=== PATIENT | female | born 1945 | race Caucasian/White ===

== ENCOUNTER → 2019-11-11 08:39 | Outpatient (CLI) | payer MEDICARE, OTHER | END | disposition home or self-care (01) | LOC: D.CT 08:39 | PROVIDERS: ATTEND Internal Medicine Cardiovascular Disease | DX: I70.213 Atherosclerosis of native arteries of extremities with intermittent claudication, bilateral legs (principal) ==

== ENCOUNTER 2019-11-25 12:09 | Day surgery (SDC) | payer MEDICARE, OTHER ==
[~2019-11-25] VITALS: Ht 157.5 cm; Wt 74.5 kg
--- NOTE | ~2019-11-25 | HEMODYNAMI ---
PATIENT:TOM ROBLES MEDICAL RECORD: [id number] : 41 LOCATION:[facility] ADMISSION DATE: 11/25/19 Generatedon:11/25/201915:05 Patient name: TOM ROBLES Patient #: [id number] SSN: : 1945 Date of study: 11/25/2019 Page: Of Hemodynamic Procedure Report Patient Data Patient Demographics Procedure consent was obtained First Name: TOM Gender: Female Last Name: MARGARET : 1945 [facility] Initial: D Age: 74 year(s) Patient #: [id number] Race: Additional ID: [id number] Contact details Address: [address] [place] [address] State: [place] City: [place] Zip code: [address] Past Medical History Allergies: No known allergies Admission Admission Data Admission Date: 11/25/2019 Admission Time: 12:09 Arrival Date: 11/25/2019 Arrival Time: 0:00 Admit Source: Other Procedure Procedure Types Cath Procedure Diagnostic Procedure Sedation Charges Moderate Sedation up to 15 minutes Peripheral Cath Diagnostic Procedure Almond Pan Finisher Peripheral Procedures AFRO (Diagnostic) Procedure Description Procedure Date Procedure Date: 11/25/2019 Procedure Start Time: 14:44 Procedure End Time: 15:03 Procedure Staff Name Function Marquez Eduardo MD Performing Physician Radha Rick RT Monitor Tangela Rosa RT Scrub Khris Licea RN Nurse Procedure Data Cath Procedure Fluoroscopy Diagnostic fluoroscopy Total fluoroscopy Time: 2.8 time: 2.8 min min Diagnostic fluoroscopy Total fluoroscopy dose: 223 dose: 223 mGy mGy Contrast Material Contrast Material Type Amount (ml) Isovue 300 72 Entry Location Entry Primary Successful Side Size Upsize Upsize Entry Closure Gordon ccessful Closure Location (Fr) 1 (Fr) 2 (Fr) Remarks Device Remarks Femoral Right 5 Fr Manual vein Compression Femoral Right 5 Fr Exoseal artery Estimated blood loss: 5 ml Diagnostic catheters Device Type Used For End Catheter Placement DIAGNOSTIC UF 5Fr Multi-vessel catheter ([id number]) Angiography DIAGNOSTIC IM 5Fr Multi-vessel catheter ([id number]) Angiography Procedure Complications No complications Procedure Medications Medication Administration Route Dosage Oxygen etCO2 Nasal cannula 2 l/min Lidocaine 2% added to field 20 Heparin Flush Bag added to field 2 bags (1000units/500ml NS) 0.9% NaCl I.V. 100 ml/hr Versed I.V. 1 mg Fentanyl I.V. 50 mcg Versed I.V. 1 mg Fentanyl I.V. 50 mcg Hemodynamics Rest Heart Rate: 62 (bpm) Snapshots Pre Cath Intra NCS Post Cath Vital Signs Time Heart Resp SPO2 etCO2 NIBP (mmHg) Rhythm Pain Sedation Rate (ipm) (%) (mmHg) Status Level (bpm) 14:24:35 69 25 98 0 Time NSR 0 (11) 10(A) Exceeded , No pain 14:28:51 70 13 98 0 199/92(153) NSR 0 (11) 10(A) , No pain 14:33:20 61 12 95 11.9 180/77(140) NSR 0 (11) 10(A) , No pain 14:37:44 59 12 96 23.9 158/80(129) NSR 0 (11) 10(A) , No pain 14:41:56 58 10 95 43.4 134/71(117) NSR 0 (11) 9(A) , No pain 14:46:14 59 15 96 41.9 135/74(108) NSR 0 (11) 9(A) , No pain 14:50:30 60 13 95 43.4 136/76(93) NSR 0 (11) 9(A) , No pain 14:54:48 63 12 96 43.4 132/74(109) NSR 0 (11) 9(A) , No pain 14:59:04 63 14 96 42.7 141/74(109) NSR 0 (11) 10(A) , No pain 15:03:24 68 17 97 32.2 148/74(122) NSR 0 (11) 10(A) , No pain Medications Time Medication Route Dose Verified Delivered Reason Notes Eff ectiveness by by 14:21:34 Oxygen etCO2 2 Marquez Buffie used for Nasal l/min Jayce Licea procurement manager cannula 14:21:40 Lidocaine 2% added 20ml Marquez Marquez for local to vial Jayce Eduardo MD anesthetic field 14:21:46 Heparin Flush added 2 Marquez Marquez used for Bag to bags Jayce Eduardo MD procedure (1000units/500ml field NS) 14:21:55 0.9% NaCl I.V. 100 Marquez Buffie Per ml/hr Jayce Licea RN physician 14:35:35 Versed I.V. 1 mg Marquez Buffie for Jayce Licea RN sedation 14:35:42 Fentanyl I.V. 50 Marquez Buffie for mcg Jayce Licea RN sedation 14:43:05 Versed I.V. 1 mg Marquez Buffie for Jayce Licea RN sedation 14:43:09 Fentanyl I.V. 50 Marquez Buffie for mcg Jayce Licea RN sedation Procedure Log Time Note 13:43:00 Informed consent obtained and on chart 13:43:09 Diagnostic Cath Status : Elective 13:43:24 Arrival Date: 11/25/2019 12:00:00 AM 13:43:25 Admit Source: Other 14:00:41 Procedure Status Peripheral. 14:00:43 Tangela Rosa RT(R) sent for patient. Start room use. 14:00:44 Time tracking: Regular hours (M-F 7:00 - 5:00) 14:00:47 Plan of Care:Hemodynamics will remain stable., Cardiac rhythm will remain stable., Comfort level will be maintained., Respiratory function will remain adequate., Patient/ family verbilizes understanding of procedure., Procedure tolerated without complication., Recovers from procedure without complications.. 14:13:15 Patient received from Pre/Post Procedure Room to [facility] 2 Alert and oriented. Tansferred to table in Supine position. 14:13:17 Warm blankets applied, and fitz hugger turned on for patient comfort. 14:13:17 Correct patient and procedure confirmed by team. 14:13:18 ECG and BP/O2 sat monitors applied to patient. 14:13:20 Pre-procedure instructions explained to patient. 14:13:21 Pre-op teaching completed and patient verbalized understanding. 14:13:22 Family unavailable. 14:13:24 Patient NPO since Midnight. 14:13:34 14:21:23 Vital chart was started 14:21:34 Oxygen 2 l/min etCO2 Nasal cannula was administered by Khris Licea RN; used for procedure; Verbal order read back and verified. 14:21:40 Lidocaine 2% 20ml vial added to field was administered by Marquez Eduardo MD; for local anesthetic; Verbal order read back and verified. 14:21:46 Heparin Flush Bag (1000units/500ml NS) 2 bags added to field was administered by Marquez Eduardo MD; used for procedure; Verbal order read back and verified. 14:21:55 0.9% NaCl 100 ml/hr I.V. was administered by Khris Licea RN; Per physician; Verbal order read back and verified. 14::44 Baseline sample Acquired. 14::48 Rhythm: sinus rhythm 14::49 Full Disclosure recording started 14::52 Is the patient allergic to Iodine/contrast media? No. 14::53 Was the patient premedicated? Yes 14:27:54 Is patient on blood thinner?Yes 14:28:00 ACC The patient was administered the following blood thiners within the last 24 hours: ACCPlavix 14:28:02 Patient diabetic? No. 14:28:04 Previous problem with sedation/anesthesia? No ? 14:28:06 Snore? No 14:28:07 Sleep apnea? No 14:28:08 Deviated septum? No 14:28:09 Opens mouth fully? Yes 14:28:10 Sticks out tongue? Yes 14:28:11 Airway obstruction? No ? 14:28:15 Dentures? Yes in tight 14:28:18 Pre procedure: right dorsailis pedis pulse 1+ Palpable, but thready & weak; easily obliterated 14:28:27 Pre procedure: left dorsailis pedis pulse 1+ Palpable, but thready & weak; easily obliterated 14:28:29 Patient pain scale 0/10 ?. 14:28:40 IV patent on arrival in left forearm with 0.9% NaCl at [facility]. 14::44 Lab results completed and on chart. 14::06 Bilateral groins area was prepped with chlora-prep and draped in sterile fashion 14:: Alarms reviewed by RJay N. 14:: Sharps counted by scrub and verified by R.N. 14:29:08 Physician arrived ::08 --------ALL STOP TIME OUT------ 14:: Final Timeout: patient, procedure, and site verified with staff and physician. All members of the team are in agreement. 14:29:10 Bilateral groins site verified by team. 14:29:13 Fire Safety Assessment: A--An alcohol-based skin anteseptic being used preoperatively., C--Open oxygen or nitrous oxide is being used., D--An ESU, laser, or fiber-optic light is being used. 14:29:17 Physical assessment completed. ASA score P 2 - A patient with mild systemic disease as per Marquez Eduardo MD. 14:31:10 3a) 45-59 Moderately reduced kidney function. 14:32:01 Maximum allowable contrast dose (3.7 X eGFR X 0.75)158 ml. 14:32:04 Sedation plan: IV Moderate Sedation Medication:Versed, Fentanyl 14:32:09 Use device set CATH PACK 14:32:10 ACIST Syringe (90889) opened to sterile field. 14:32:10 ACIST Hand Control (45819) opened to sterile field. 14:32:11 ACIST Manifold (35959) opened to sterile field. 14:32:11 Medline Cath Pack ([id number]) opened to sterile field. 14:32:11 Bag Decanter (2002S) opened to sterile field. 14:32:12 EMERALD Guide Wire (415-350) opened to sterile field. 14:32:18 SHEATH 5FR [place] (ZHL189) opened to sterile field. 14:35:35 Versed 1 mg I.V. was administered by Khris Licea RN; for sedation; Verbal order read back and verified. 14:35:42 Fentanyl 50 mcg I.V. was administered by Khris Licea RN; for sedation; Verbal order read back and verified. 14:43:05 Versed 1 mg I.V. was administered by Khris Licea RN; for sedation; Verbal order read back and verified. 14:43:09 Fentanyl 50 mcg I.V. was administered by Khris Licea RN; for sedation; Verbal order read back and verified. 14:44:29 Procedure started. 14:44:46 Local anesthetic to right femoral artery with Lidocaine 2% by Marquez Eduardo MD.INITIAL ACCESS ONLY 14:44:54 A 5 Fr sheath was inserted into the Right Femoral vein 14:47:17 SHEATH 5FR [place] (GMI312) opened to sterile field. 14:48:45 A 5 Fr sheath was inserted into the Right Femoral artery 14:50:38 A DIAGNOSTIC UF 5Fr catheter ([id number]) was advanced over the wire and used for Multi-vessel Angiography. 14:53:14 Abdominal angiogram w/ runoff was performed. 14:55:30 Catheter removed. 14:55:33 A DIAGNOSTIC IM 5Fr catheter ([id number]) was advanced over the wire and used for Multi-vessel Angiography. 14:58:21 Left leg runoff performed. 14:58:27 Injector settings: Ml/sec: 10, Volume: 20, 14:58:29 Catheter removed. 14:58:36 EXOSEAL 5Fr (EX500) opened to sterile field. 14:59:03 Sheath removed intact; hemostasis achieved with Exoseal to the Right Femoral artery. 14:59:05 Procedure ended.(Physican Out) 14:59:19 Sheath removed intact; hemostasis achieved with Manual Compression to the Right Femoral vein. 14:59:25 Fluoroscopy time 02.80 minutes. 14:59:31 Fluoroscopy dose: 223 mGy 14:59:31 Flurop Dose total: 223 14:59:36 Dose Area Product 20599 mGy/cm. 15:01:19 Contrast amount:Isovue 300 72ml. 15:01:21 Maximum allowable dose exceeded? No. 15:01:22 Sharps counted by scrub and verified by R.N. 15:01:55 Insertion/operative site no bleeding no hematoma. 15:02:07 Post-op/insertion site Right Femoral artery dressed using a 4 x 4 and Tegaderm. 15:02:09 Post Procedure Pulses reassessed and unchanged 15:02:11 Post procedure rhythm: unchanged. 15:02:25 Estimated blood loss: 5 ml 15:02:26 Post procedure instruction explained to patient.Patient verbalizes understanding. 15:02:27 Patient needs reinforcement of post procedure teaching. 15:03:06 Procedure type changed to Cath procedure, Diagnostic procedure, Sedation Charges, Moderate Sedation up to 15 minutes, Peripheral Cath Diagnostic Procedure, Almond Pan Finisher Peripheral Procedures, AFRO (Diagnostic) 15:03:07 Procedure and supply charges have been captured, reviewed, submitted and are correct. 15:03:12 Procedure Complication : No complications 15:03:14 Vital chart was stopped 15:03:20 AFRO Findings: PVD: will discuss options w/ pt 15:03:23 Operative report dictated upon procedure completion. 15:03:23 See physician's report for complete and final results. 15:03:25 Report given to Pre/Post Procedure Room. 15:03:27 Patient transfered to Pre/Post Procedure Room with Stretcher. 15:03:28 Procedure ended. 15:03:28 Full Disclosure recording stopped 15:03:33 End room use (Document Last) 15:04:43 End room use (Document Last) 15:05:10 End room use (Document Last) Device Usage Item Name Manufacture Quantity Catalog Hospital Part Current Minimal L ot# / Number Charge Number Stock Stock Serial# Code ACIST Acist 1 00798 048513 646698 971021 20 Syringe Medical (91472) Systems Inc ACIST Hand Acist 1 19959 623294 656411 776039 5 Control Medical (17061) Systems Inc ACIST Acist 1 18975 138980 159244 350842 5 Manifold Medical (93178) Systems Inc Medline Medline 1 [id number] 264245 73031 528452 5 Cath Pack ([id number]) Bag Microtek 1 2001S 241076 65143 116573 5 Decanter Medical Inc. () EMERALD Cardinal 1 502-455 296601 388872 809548 5 Guide Wire Health (502-455) SHEATH 5FR Terumo 2 BMI216 597023 387574 282892 5 [place] (XQL971) DIAGNOSTIC Cardinal 1 [id number] 851006 729516 772725 10 UF 5Fr Health catheter (488259F3) DIAGNOSTIC Cardinal 1 [id number] 101897 379521 328284 5 IM 5Fr Health catheter (327550F) EXOSEAL 5Fr Cardinal 1 EX500 781272 853374 339642 10 (EX500) Health Signature Audit [place] Stage Time Signature Unsigned Intra-Procedure 11/25/2019 Radha Rcik 3:04:43 PM RT(R) Intra-Procedure 11/25/2019 Khris Licea RN 3:05:10 PM Intra-Procedure 11/25/2019 Marquez Eduardo MD 3:05:36 PM Signatures Performing Physician : Signature : Marquez Eduardo MD Date : Time : Monitor : Radha Prabhjot RT Signature : Date : Time : Nurse : Buffie Licea RN Signature : Date : Time : [address] [place] [address]
[2019-11-25] MEDS ORDERED: CYMBALTA60 MG PO (13:25)
[2019-11-25] MEDS ORDERED: TENORMIN25 MG PO (13:25)
[2019-11-25] MEDS ORDERED: AVAPRO150 MG PO (13:25)
[2019-11-25] MEDS ORDERED: CLARITIN 10 MG10 MG PO (13:26)
[2019-11-25] MEDS ORDERED: PROTONIX40 MG PO (13:26)
[2019-11-25] MEDS ORDERED: KLOR-CON 1010 MEQ PO (13:27)
[2019-11-25] MEDS ORDERED: PLAVIX75 MG PO (13:27)
[2019-11-25] MEDS ORDERED: ATARAX 25 MG TA25 MG PO (13:28)
[2019-11-25] MEDS ORDERED: NEURONTIN 300300 MG PO (13:28)
[2019-11-25] MEDS ORDERED: CATAPRES0.1 MG PO (13:29)
[2019-11-25 13:40] VITALS: BP 175/83; Ht 157.5 cm; Wt 74.5 kg
[2019-11-25 13:52] LABS: BASOPHILS 0.3 % (0-2); EOSINOPHILS 8.9 % (0-7); HEMOGLOBIN 11.9 g/dL (12-16); IMMATURE GRANULOCYTES 0.3 % (0-5); LYMPHOCYTES 34.8 % (15-50); MCH 30.1 pg (26.0-34.0); MCHC 33.1 g/dL (31.0-37.0); MCV 90.9 fL (80.0-100.0); MEAN PLATELET VOLUME 10.3 fL (7.4-10.4); MONOCYTES 9.5 % (2-11); NEUTROPHILS 46.2 % (40-80); PLATELET COUNT 258 10x3/uL (130-400); RBC 3.96 10x6/uL (4.00-5.40); RDW 12.8 % (11.5-14.5); WBC 7.6 10x3/uL (4.8-10.8)
[2019-11-25 13:58] LABS: ANION GAP 9.3 mmol/L (8-16); CARBON DIOXIDE 27.4 mmol/L (21.0-32.0); POTASSIUM - SERUM 3.7 mmol/L (3.5-5.1)
--- NOTE | 2019-11-25 15:20 | NUR ---
PT REC'D TO ROOM 3 VIA STRETCHER FROM AUTOMATIC SILK SCREEN PRINTER. MONITORS ESTAB. SEE RADIOLOGY PHYSICIAN ASSISTANT, ALARMS ON AND C/L IN REACH.
--- NOTE | 2019-11-25 15:35 | NUR ---
R GROIN SITE C/D/I, NO S/S BLEEDING OR HEMATOMA. PULSES PALP. VSS. PT RESTING QUIETLY. ALARMS ON AND C/L IN REACH.
--- NOTE | 2019-11-25 16:05 | NUR ---
R GROIN SITE C/D/I, NO S/S BLEEDING OR HEMATOMA. PULSES PALP. BEGIN ELEVATING HOB SLOWLY. VSS. C/L IN REACH.
--- NOTE | 2019-11-25 16:19 | NUR ---
DR. BAUER IN TO TALK WITH PT. VSS. R GROIN SITE C/D/I. PT GIVEN SPRITE PER REQUEST. C/L IN REACH.
--- NOTE | 2019-11-25 16:45 | NUR ---
R GROIN SITE SOFT, C/D/I, NO S/S BLEEDING OR HEMATOMA. PIV D/C'D INTACT, DSG APPLIED. PT ASSISTED UP TO GET DRESSED AND GO TO BR.
--- NOTE | 2019-11-25 16:55 | NUR ---
ALL DISCHARGE INSTRUCTIONS REVIEWED WITH PT - VERBALIZES UNDERSTANDING.
--- NOTE | 2019-11-25 17:10 | NUR ---
PT D/C'D VIA WC TO PRIVATE VEHICLE WITH ALL PAPER WORK AND BELONGINGS.
== END 2019-11-25 17:10 | disposition home or self-care (01) ==
LOC: D.CATH 12:09
PROVIDERS: ATTEND Internal Medicine Cardiovascular Disease
DX: I70.213 Atherosclerosis of native arteries of extremities with intermittent claudication, bilateral legs (principal); Z95.0 Presence of cardiac pacemaker; R00.1 Bradycardia, unspecified; K21.9 Gastro-esophageal reflux disease without esophagitis

== ENCOUNTER 2019-12-10 07:34 | Day surgery (SDC) | payer MEDICARE, OTHER ==
[~2019-12-10] VITALS: Ht 157.5 cm; Wt 72.3 kg
--- NOTE | ~2019-12-10 | HEMODYNAMI ---
PATIENT:TOM ROBLES MEDICAL RECORD: [id number] : 41 LOCATION:[facility] ADMISSION DATE: 12/10/19 Generatedon:12/10/201911:03 Patient name: TOM ROBLES Patient #: [id number] SSN: : 1945 Date of study: 12/10/2019 Page: Of Hemodynamic Procedure Report Patient Data Patient Demographics Procedure consent was obtained First Name: TOM Gender: Female Last Name: MARGARET : 1945 Middle Initial: D Age: 74 year(s) Patient #: [id number] Race: Additional ID: [id number] Contact details [address]: [address] [place] [address] State: [place] City: [place] Zip code: [address] Past Medical History Allergies Allergen Reaction Date Comments Reported NSAIDs 12/10/2019 Admission Admission Data Admission Date: 12/10/2019 Admission Time: 7:34 Arrival Date: 12/10/2019 Arrival Time: 0:00 Height (in.): 61.81 BSA: 1.73 (m2) Height (cm.): 157 BMI: 29.21 (kg/m2) Weight (lbs.): 158.73 Weight (kg.): 72 Lab Results Lab Result Date: 12/10/2019 Lab Result Time: 0:00 Biochemistry Name Units Result Min Max BUN mg/dl 20 --(----)*- 7 18 Creatinine mg/dl 1 --(--*-)-- 0.6 1.3 eGFR ml/min 57 *-(----)-- 90 120 NONAFRICAN CBC Name Units Result Min Max Hematocrit % 37.5 *-(----)-- 42 54 Hemoglobin g/dl 12.4 *-(----)-- 13.5 17.5 Procedure Procedure Types Cath Procedure Diagnostic Procedure Sedation Charges Moderate Sedation up to 45 minutes PCI Procedure Hemochron ACT Test Peripheral vascular Intervention Atherectomy Atherectomy Fem/Pop w/Plasty Procedure Description Procedure Date Procedure Date: 12/10/2019 Procedure Start Time: 10:10 Procedure End Time: 11:01 Procedure Staff Name Function Marquez Eduardo MD Performing Physician Louisa Carpenter RT Monitor Radha Rick RT Scrub Khris Licea RN Nurse Procedure Data Cath Procedure Fluoroscopy Diagnostic fluoroscopy Total fluoroscopy Time: time: 17.1 min 17.1 min Diagnostic fluoroscopy Total fluoroscopy dose: 301 dose: 301 mGy mGy Contrast Material Contrast Material Type Amount (ml) Isovue 300 34 Entry Location Entry Primary Successful Side Size Upsize Upsize Entry Closure Succes sful Closure Location (Fr) 1 (Fr) 2 (Fr) Remarks Device Remarks Femoral Left 6 Fr 6 Fr Exoseal artery Short Long Estimated blood loss: 10 ml Diagnostic catheters Device Type Used For End Catheter Placement DIAGNOSTIC IM 5Fr Procedure catheter ([id number]) Procedure Complications No complications Procedure Medications Medication Administration Route Dosage Oxygen etCO2 Nasal cannula 2 l/min Lidocaine 2% added to field 20 Heparin Flush Bag added to field 2 bags (1000units/500ml NS) 0.9% NaCl I.V. 100 ml/hr Versed I.V. 2 mg Fentanyl I.V. 100 mcg Heparin Bolus I.V. 6000 units Versed I.V. 0.5 mg Fentanyl I.V. 25 mcg Viperslide Mix(5mg added to field 1 bags Verapamil/5mg Nitro/20cc Viperslide/100cc Bag NS) Versed I.V. 0.5 mg Fentanyl I.V. 25 mcg Plavix P.O. 75 mg Hemodynamics Rest BSA: 1.73 (m2) HGB: 12.4 (g/dl) O2 Consumption: Estimated: 150.84 (ml/min) O2 Co nsumption indexed: Estimated:87.19 (ml/min/m) Heart Rate: 61 (bpm) Snapshots Pre Cath Intra NCS Post Cath Vital Signs Time Heart Resp SPO2 etCO2 NIBP (mmHg) Rhythm Pain Sedation Rate (ipm) (%) (mmHg) Status Level (bpm) 9:57:49 62 14 98 34.7 148/73(119) NSR 0 (11) 10(A) , No pain 10:02:07 65 28 98 30.9 129/70(106) NSR 0 (11) 10(A) , No pain 10:06:21 63 14 99 30.2 112/60(94) NSR 0 (11) 10(A) , No pain 10:10:29 62 12 99 20.3 111/61(90) NSR 0 (11) 10(A) , No pain 10:14:35 65 15 99 10.5 109/62(87) NSR 0 (11) 9(A) , No pain 10:18:41 68 12 100 14.3 108/61(92) NSR 0 (11) 9(A) , No pain 10:22:44 68 11 100 8.3 102/66(83) NSR 0 (11) 9(A) , No pain 10:26:50 70 10 100 14.3 102/54(70) NSR 0 (11) 9(A) , No pain 10:30:56 68 11 100 9 102/57(84) NSR 0 (11) 9(A) , No pain 10:35:04 68 12 98 19.6 93/50(70) NSR 0 (11) 9(A) , No pain 10:39:06 67 10 96 27.1 99/55(83) NSR 0 (11) 9(A) , No pain 10:43:11 68 10 94 21.1 96/52(76) NSR 0 (11) 9(A) , No pain 10:47:15 67 10 93 18.8 108/55(74) NSR 0 (11) 9(A) , No pain 10:51:23 65 15 96 18.1 99/56(73) NSR 0 (11) 9(A) , No pain 10:55:23 65 18 97 40.7 114/69(100) NSR 0 (11) 9(A) , No pain 10:59:28 62 14 99 36.2 120/71(89) NSR 0 (11) 10(A) , No pain Medications Time Medication Route Dose Verified Delivered Reason Notes Effectiveness by by 9:57:57 Oxygen etCO2 2 Marquez Buffie used for Nasal l/min Jayce Licea debrander cannula 9:58:04 Lidocaine 2% added 20ml Marquez Marquez for local to vial Jayce Eduardo MD anesthetic field 9:58:10 Heparin Flush added 2 Marquez Marquez used for Bag to bags Jayce Eduardo MD procedure (1000units/500ml field NS) 9:58:24 0.9% NaCl I.V. 100 Marquez Buffie Per physician ml/hr Jayce Licea RN 10:09:23 Versed I.V. 2 mg Marquez Buffie for sedation Jayce Licea RN 10:09:28 Fentanyl I.V. 100 Marquez Buffie for sedation mcg Jayce Licea RN 10:12:44 Versed I.V. 0.5 Marquez Buffie for sedation mg Jayce Licea RN 10:12:49 Fentanyl I.V. 25 Marquez Buffie for sedation mcg Jayce Licea RN 10:16:43 Heparin Bolus I.V. 6000 Marquez Buffie for verif ied units Jayce Licea RN anticoagulation with dr eduardo 10:24:07 Viperslide added 1 Marquez Marquez used for Mix(5mg to bags Jayce Eduardo MD procedure Verapamil/5mg field Nitro/20cc Viperslide/100cc Bag NS) 10:31:21 Versed I.V. 0.5 Marquez Buffie for sedation mg Jayce Licea RN 10:31:25 Fentanyl I.V. 25 Marquez Buffie for sedation mcg Jayce Licea RN 10:59:00 Plavix P.O. 75 mg Marquez Buffie for Jayce Licea RN antiplatelet therapy Procedure Log Time Note 9::28 Informed consent obtained and on chart 9:10:02 Procedure Status Peripheral. 9:10:04 Time tracking: Regular hours (M-F 7:00 - 5:00) 9:10:06 Plan of Care:Hemodynamics will remain stable., Cardiac rhythm will remain stable., Comfort level will be maintained., Respiratory function will remain adequate., Patient/ family verbilizes understanding of procedure., Procedure tolerated without complication., Recovers from procedure without complications.. 9:25:54 Patient Weight : 158.73 lbs 9:25:57 Patient Height : 61.81 inches 9:26:01 Arrival Date: 12/10/2019 12:00:00 AM 9::28 Lab Result : eGFR NONAFRICAN 57 ml/min 9::28 Lab Result : Hemoglobin 12.4 g/dl 9::28 Lab Result : BUN 20 mg/dl 9:: Lab Result : Creatinine 1 mg/dl 9:26:28 Lab Result : Hematocrit 37.5 % 9:26:48 Patient allergic to NSAIDs 9:42:46 Louisa Carpenter RT(R) sent for patient. Start room use. 9:56:32 Patient received from Pre/Post Procedure Room to CCL 2 Alert and oriented. Tansferred to table in Supine position. 9:56:34 Warm blankets applied, and fitz hugger turned on for patient comfort. 9:56:35 Correct patient and procedure confirmed by team. 9:56:36 ECG and BP/O2 sat monitors applied to patient. 9:56:37 Vital chart was started 9:56:38 Baseline sample Acquired. 9:56:45 Rhythm: sinus rhythm 9:56:47 Full Disclosure recording started 9:56:48 - 9:56:55 H&P Date Dictated: 12/10/2019 H&P Addendum completed by physician on day of procedure. (MUST COMPLETE FOR ALL OUTPATIENTS), New H&P dictated by physician.. 9:56:57 Pre-procedure instructions explained to patient. 9:56:58 Pre-op teaching completed and patient verbalized understanding. 9:57:03 Family unavailable. 9:57:05 Patient NPO since Midnight. 9:57:15 Is the patient allergic to Iodine/contrast media? No. 9:57:19 Was the patient premedicated? Yes 9:57:29 Is patient on blood thinner?Yes 9:57:34 ACC The patient was administered the following blood thiners within the last 24 hours: ACCPlavix 9:57:57 Oxygen 2 l/min etCO2 Nasal cannula was administered by Khris Licea RN; used for procedure; Verbal order read back and verified. 9:58:04 Lidocaine 2% 20ml vial added to field was administered by Marquez Eduardo MD ; for local anesthetic; Verbal order read back and verified. 9:58:10 Heparin Flush Bag (1000units/500ml NS) 2 bags added to field was administered by Marquez Eduardo MD; used for procedure; Verbal order read back and verified. 9:58:24 0.9% NaCl 100 ml/hr I.V. was administered by Khris Licea RN; Per physician; Verbal order read back and verified. 9:59:03 Patient diabetic? No. 9:59:06 ----Pre-sedation anethsthesia assessment.---- 9:59:10 Previous problem with sedation/anesthesia? No ? 9:59:14 Snore? Yes 9:59:16 Sleep apnea? No 9:59:19 Deviated septum? Unknown 9:59:22 Opens mouth fully? Yes 9:59:24 Sticks out tongue? Yes 9:59:28 Airway obstruction? No ? 9:59:40 Dentures? Yes in tight 9:59:47 Pre procedure: right dorsailis pedis pulse 1+ Palpable, but thready & weak; easily obliterated 10:00:11 IV patent on arrival in right forearm with 0.9% NaCl at O. 10:00:25 Lab results completed and on chart. 10:00:39 Bilateral groins area was prepped with chlora-prep and draped in steril e fashion 10:00:41 Alarms reviewed by R. N. 10:00:42 Sharps counted by scrub and verified by R.N. 10:00:53 Use device set Femoral Dx 10:00:55 ACIST Syringe (72420) opened to sterile field. 10:00:56 Bag Decanter (2002S) opened to sterile field. 10:00:56 Medline Cath Pack ([id number]) opened to sterile field. 10:00:59 ACIST Hand Control (62688) opened to sterile field. 10:00:59 ACIST Manifold (00587) opened to sterile field. 10:01:02 Tegaderm 4 x 4 (1626W) opened to sterile field. 10:01:05 EMERALD Guide Wire (502-102) opened to sterile field. 10:02:20 GLIDE WIRE ANGLE 260cm (JM2242) opened to sterile field. 10:02:21 TUBING High Pressure Extension Tubing (Jayce) (GH1004I) opened to sterile field. 10:02:23 SHEATH 6FR [place] (PQF763) opened to sterile field. 10:08:08 --------ALL STOP TIME OUT------ :08:09 Final Timeout: patient, procedure, and site verified with staff and physician. All members of the team are in agreement. 10:08:11 Bilateral groins site verified by team. 10:08:22 Fire Safety Assessment: A--An alcohol-based skin anteseptic being used preoperatively., C--Open oxygen or nitrous oxide is being used., D--An ESU, laser, or fiber-optic light is being used. 10:08:24 Physical assessment completed. ASA score P 2 - A patient with mild systemic disease as per Marquez Eduardo MD. 10:08:35 3a) 45-59 Moderately reduced kidney function. 10:08:36 Maximum allowable contrast dose (3.7 X eGFR X 0.75)158 ml. 10:08:39 Sedation plan: IV Moderate Sedation Medication:Versed, Fentanyl 10:09:23 Versed 2 mg I.V. was administered by Khris Licea RN; for sedation; Verbal order read back and verified. 10:09:28 Fentanyl 100 mcg I.V. was administered by Khris Licea RN; for sedation; Verbal order read back and verified. 10:09:52 Procedure started. 10:10:36 Local anesthetic to left femerol artery with Lidocaine 2% by Marquez Eduardo MD.INITIAL ACCESS ONLY 10:11:27 A 6 Fr Short sheath was inserted into the Left Femoral artery 10:12:44 Versed 0.5 mg I.V. was administered by Khris Licea RN; for sedation; Verbal order read back and verified. 10:12:45 A DIAGNOSTIC IM 5Fr catheter ([id number]) was advanced over the wire and used for Procedure. 10:12:49 Fentanyl 25 mcg I.V. was administered by Khris Licea RN; for sedation; Verbal order read back and verified. 10:13:21 IM CATHTER AND GLIDEWIRE ADVANCED AROUND THE HORN 10:14:11 GLIDE WIRE EXCHANGED FOR J WIRE. IM CATHETER REMOVED OVER THE JWIRE 10:15:44 Cook RAABE 6FR. 90cm guide sheath opened to sterile field. 10:16:20 Sheath upsized to a 6 Fr Long. 10:16:43 Heparin Bolus 6000 units I.V. was administered by Khris Licea RN; for anticoagulation; verified with dr eduardo Verbal order read back and verified. 10:17:00 COOK SHEATH ADVANCED AROUND THE HORN 10:17:37 WIRE REMOVED 10:19:38 DIAMONDBACK VIPER .014 335 CM wire ([id number]) opened to sterile field. 10:20:42 VIPER WIRE ADVANCED 10:22:32 VIPER WIRE REMOVED 10:22:37 BMW 300cm Straight [place] 2 wire ([id number]) opened to sterile field. 10:22:55 BMW 300 ADVANCED 10:24:07 Viperslide Mix(5mg Verapamil/5mg Nitro/20cc Viperslide/100cc Bag NS) 1 bags added to field was administered by Marquez Eduardo MD; used for procedure; Verbal order read back and verified. 10:25:01 SABER BALLOON USED TO ADVANCED WIRE ACROSS LESION. 10:25:27 BMW REMOVED AND CHANGED FOR VIPER WIRE 10:27:10 The SABER 5.0 X 150 X 150 balloon ([id number]) was advanced and then removed because it was opened but not used 10:27:36 DIAMONDBACK Viperslide Lubricant (VPRSLD2) opened to sterile field. 10:28:54 DIAMONDBACK 360 1.50 SOLID Atherectomy catheter ([id number]) opened to sterile field. 10:29:01 CARLOT[place]ACK Viperwire Advance Coronary guidewire ([id number]) opened to sterile field. 10:31:21 Versed 0.5 mg I.V. was administered by Khris Licea RN; for sedation; Verbal order read back and verified. 10:31:25 Fentanyl 25 mcg I.V. was administered by Khris Lciea RN; for sedation; Verbal order read back and verified. 10:34:45 Diamondback atherectomy performed on Common Femoral. 10:42:57 Diamondback catheter removed. 10:46:59 Inflate balloon Inflation number: 1 A SABER 5.0 X 150 X 150 balloon ([id number]) was prepped and advanced across the Mid Common Femoral, Right , then inflated to 4 BEATA for 1:34 (min:sec) . 10:49:46 Inflation number: 2 The SABER 5.0 X 150 X 150 balloon ([id number]) was reinflated across the Mid Common Femoral, Right , to 4 BEATA for 2:06 (min:sec) . 10:50:50 Balloon removed over the wire. 10:52:15 Wire removed. 10:53:31 LONG SHEATH EXCHANGED FOR A SHORT SHEATH 10:54:01 EXOSEAL 6Fr (EX600) opened to sterile field. 10:55:05 Sheath removed intact; hemostasis achieved with Exoseal to the Left Femoral artery. 10:55:13 Procedure ended.(Physican Out) 10:55:27 Fluoroscopy time 17.10 minutes. 10:55:31 Flurop Dose total: 301 10:55:31 Fluoroscopy dose: 301 mGy 10:55:35 Dose Area Product 39229 mGy/cm. 10:55:59 Contrast amount:Isovue 300 34ml. 10:56:02 Maximum allowable dose exceeded? No. 10:56:03 Sharps counted by scrub and verified by R.N. 10:56:05 Post-op/insertion site Left Femoral artery dressed using a 4 x 4 and Tegaderm. 10:56:08 Post-procedure physical assessment completed. ASA score P 2 - A patient with mild systemic disease as per Marquez Eduardo MD. 10:56:34 Post procedure rhythm: sinus rhythm 10:56:36 Estimated blood loss: 10 ml 10:56:37 Post procedure instruction explained to patient.Patient verbalizes understanding. 10:56:38 Patient needs reinforcement of post procedure teaching. 10:57:20 Procedure type changed to Cath procedure, Diagnostic procedure, Sedatio n Charges, Moderate Sedation up to 45 minutes, PCI procedure, Hemochron ACT Test, Peripheral vascular Intervention, Atherectomy, Atherectomy Fem/Pop w/Plasty 10:59:00 Plavix 75 mg P.O. was administered by Khris Licea RN; for antiplatelet therapy; Verbal order read back and verified. 10:59:13 ACT drawn and resulted at out of range high seconds. (normal therapeuti c range 180-240 seconds). 10:59:39 Procedure and supply charges have been captured, reviewed, submitted an d are correct. 10:59:41 Procedure Complication : No complications 10:59:52 Operative report dictated upon procedure completion. 10:59:55 See physician's report for complete and final results. 10:59:57 Report given to Pre/Post Procedure Room. 11:00:00 Patient transfered to Pre/Post Procedure Room with Bed. 11:00:02 Vital chart was stopped 11:01:23 Procedure ended. 11:01:23 Full Disclosure recording stopped 11:01:29 End room use (Document Last) 11:02:26 End room use (Document Last) 11:02:50 End room use (Document Last) Intervention Summary Intervention Notes Time ActionType Lesion and Equipment Action# Pressure Duration Attributes Used 10:27:10 Discard SABER 5.0 X Balloon 150 X 150 balloon ([id number]) 10:46:59 Inflate Mid Common SABER 5.0 X 1 4 01:34 balloon Femoral, 150 X 150 Right balloon ([id number]) 10:49:46 Reinflate Mid Common SABER 5.0 X 2 4 02:06 balloon Femoral, 150 X 150 Right balloon ([id number]) Device Usage Item Name Manufacture Quantity Catalog Number Hospital Part Curr ent Minimal Lot# / Charge Number Stock Stock Serial# Code ACIST Syringe Acist Medical 1 28565 265103 378822 2341 04 20 (90516) Systems Inc Bag Decanter Microtek 1 2001S 573895 09103 9838 02 5 (2001S) Medical Inc. Medline Cath Medline 1 [id number] 017817 22184 9860 46 5 Pack ([id number]) ACIST Hand Acist Medical 1 69716 755759 161479 1888 35 5 Control (82176) Systems Inc ACIST Manifold Acist Medical 1 80477 248681 555838 3335 51 5 (50583) Systems Inc Tegaderm 4 x 4 3M 1 1626W 230271 562513 0414 71 5 (1626W) EMERALD Guide Cardinal 1 502-455 412527 217818 5480 17 5 Wire (502-455) Health GLIDE WIRE ANGLE Terumo 1 XU3767 792176 327250 8879 50 5 260cm (VN8962) TUBING [employer] Medical 1 [id number] 796812 71410 9990 36 10 Pressure Extension Tubing (Eduardo) ([id number]) SHEATH 6FR Terumo 1 GZM645 466688 099886 8228 15 40 [place] (YYK385) DIAGNOSTIC IM Cardinal 1 [id number] 093971 456017 9296 88 5 5Fr catheter Health (367561N) Cook RAABE 6FR. [place] Medical 1 D55452 545817 8409 28 5 90cm guide sheath DIAMONDBACK Cardiovascular 1 VPR-[id number] 129060 5195 20 5 VIPER .014 335 systems CM wire (UGSILOH02) BMW 300cm [place] 1 9148705 398208 948309 7735 29 5 Straight Vascular [place] 2 wire (9306072) SABER 5.0 X 150 Cardinal 1 [id number] 283508 4248 90 5 X 150 balloon Health ([id number]) DIAMONDBACK Cardiovascular 1 VPR-SLD2 689494 0838 68 5 Viperslide systems Lubricant (VPRSLD2) DIAMONDBACK 360 Cardiovascular 1 [id number] 296814 91801 9999 91 5 1.50 SOLID systems Atherectomy catheter ([id number]) DIAMONDBACK Cardiovascular 1 [id number] 032665 223030 7369 91 5 Viperwire systems Advance Coronary guidewire ([id number]) EXOSEAL 6Fr Cardinal 1 EX600 434065 283997 7801 76 10 (EX600) Health Signature Audit [place] Stage Time Signature Unsigned Intra-Procedure 12/10/2019 Louisa Carpenter 11:02:26 AM RT(R) Intra-Procedure 12/10/2019 Khris Licea RN 11:02:51 AM Intra-Procedure 12/10/2019 Marquez Eduardo MD 11:03:53 AM Signatures Performing Physician : Signature : Marquez Eduardo MD Date : Time : Monitor : Louisa Carpenter Signature : RT Date : Time : Nurse : Khris Licea RN Signature : Date : Time : [place] [address] [place] [address]
[~2019-12-10 07:34] MED LIST: ATARAX 25 MG TA25 MG PO; AVAPRO150 MG PO; CATAPRES0.1 MG PO; CLARITIN 10 MG10 MG PO; CYMBALTA60 MG PO; KLOR-CON 1010 MEQ PO; NEURONTIN 300300 MG PO; PLAVIX75 MG PO; PROTONIX40 MG PO; TENORMIN25 MG PO
[2019-12-10 08:33] VITALS: BP 150/77; Ht 157.5 cm; Wt 72.3 kg
[2019-12-10 08:56] LABS: ANION GAP 13.7 mmol/L (8-16); CALCIUM 9.3 mg/dL (8.5-10.1); CARBON DIOXIDE 27.3 mmol/L (21.0-32.0)
[2019-12-10 09:09] LABS: BASOPHILS 0.4 % (0-2); EOSINOPHILS 8.4 % (0-7); HEMATOCRIT 37.5 % (36.0-48.0); HEMOGLOBIN 12.4 g/dL (12-16); IMMATURE GRANULOCYTES 0.2 % (0-5); LYMPHOCYTES 33.6 % (15-50); MCH 30.5 pg (26.0-34.0); MCHC 33.1 g/dL (31.0-37.0); MCV 92.1 fL (80.0-100.0); MEAN PLATELET VOLUME 10.3 fL (7.4-10.4); MONOCYTES 8.2 % (2-11); NEUTROPHILS 49.2 % (40-80); PLATELET COUNT 267 10x3/uL (130-400); RBC 4.07 10x6/uL (4.00-5.40); RDW 12.8 % (11.5-14.5); WBC 5.6 10x3/uL (4.8-10.8)
--- NOTE | 2019-12-10 11:10 | NUR ---
PT REC'D TO ROOM [address] ADMINISTRATOR. MONITORS ESTAB. NO FAMILY AT BS. SEE DIRECTOR BUSINESS INTELLIGENCE. ALARMS ON AND C/L IN REACH.
--- NOTE | 2019-12-10 11:25 | NUR ---
L GROIN SITE SOFT, NO S/S BLEEDING OR HEMATOMA. PULSES PALP. R LEG/FOOT WARM. VSS. PT RESTING QUIETLY, C/L IN REACH.
--- NOTE | 2019-12-10 11:55 | NUR ---
L GROIN SITE SOFT, NO S/S BLEEDING OR HEMATOMA. PULSES PALP. VSS. PT DENIES PAIN OR NEEDS.
--- NOTE | 2019-12-10 12:10 | NUR ---
L GROIN SITE C/D/I, NO S/S BLEEDING OR HEMATOMA. PULSES PALP. VSS. SON UPDATED VIA PHONE. PLAN FOR PT D/C AT 1500.
--- NOTE | 2019-12-10 12:40 | NUR ---
L GROIN SITE C/D/I, NO S/S BLEEDING OR HEMATOMA. PULSES PALP. VSS. ALARMS ON AND C/L IN REACH.
--- NOTE | 2019-12-10 13:10 | NUR ---
L GROIN SITE SOFT, NO S/S BLEEDING OR HEMATOMA. PULSES PALP. VSS. PT RESTING QUIETLY, DENIES PAIN OR NEEDS. ALARMS ON AND C/L IN REACH.
--- NOTE | 2019-12-10 13:40 | NUR ---
L GROIN SITE C/D/I, NO S/S BLEEDING OR HEMATOMA. PULSES PALP, R FOOT WARMER THAN L. VSS. C/L IN REACH.
--- NOTE | 2019-12-10 14:05 | NUR ---
L GROIN SITE SOFT, NO S/S BLEEDING OR HEMATOMA. HOB ELEVATED GRADUALLY. SANDWICH TRAY AND SPRITE PROVIDED. ALARMS ON AND C/L IN REACH.
--- NOTE | 2019-12-10 14:30 | NUR ---
ATE SANDWICH, NO N/V. L GROIN SITE SOFT, NO S/S BLEEDING OR HEMATOMA. PT DENIES PAIN OR NEEDS.
--- NOTE | 2019-12-10 14:45 | NUR ---
ALL DISCHARGE INSTRUCTIONS REVIEWED WITH PT, INCLUDING MEDS (PLAVIX DOSE GIVEN TODAY), RESTRICTIONS, AND F/U APPT. PT VERBALIZES UNDERSTANDING. PIV D/C'D INTACT, DSG APPLIED. .PT ALLOWED UP TO GET DRESSED AND GO TO BR INDEPENDENTLY.
--- NOTE | 2019-12-10 15:00 | NUR ---
PT D/C'D VIA WC TO PRIVATE VEHICLE WITH ALL PAPERWORK AND BELONGINGS.
== END 2019-12-10 15:00 | disposition home or self-care (01) ==
LOC: D.CATH 07:34
PROVIDERS: ATTEND Internal Medicine Cardiovascular Disease
DX: I70.211 Atherosclerosis of native arteries of extremities with intermittent claudication, right leg (principal)